=== PATIENT | male | born 1990 | race Caucasian/White ===

== ENCOUNTER 2016-09-13 22:45 | Emergency (ER) | payer SELFPAY ==
[2016-09-13] MEDS ORDERED: LEXAPRO20 M2 PO (23:13)
[2016-09-13] MEDS ORDERED: KLONOPIN0.5 M1 PO (23:13)
[2016-09-13] MEDS ORDERED: AMOXICILLIN875 M1 PO (23:46)
[2016-09-13] MEDS ORDERED: NORCO 5/3251 TAB PO (23:46)
== END 2016-09-13 23:58 ==
LOC: EDMED 22:45
DX: S02.5XXA Fracture of tooth (traumatic), initial encounter for closed fracture (principal); X58.XXXA Exposure to other specified factors, initial encounter